=== PATIENT | male | born 1945 | race Caucasian/White ===

== ENCOUNTER 2022-05-29 06:22 | Day surgery (SDC) | payer MEDICARE, BC ==
[~2022-05-29] VITALS: Ht 177.8 cm; Wt 98.5 kg
[2022-05-29] MEDS ORDERED: PROTONIX 40MG T40 MG PO (06:54)
[2022-05-29] MEDS ORDERED: NORVASC 10MG10 MG PO (06:55)
[2022-05-29] MEDS ORDERED: ZESTORETIC 25 M1 TAB PO (06:56)
[2022-05-29] MEDS ORDERED: MEVACOR40 MG PO (06:57)
[2022-05-29] MEDS ORDERED: TENORMIN 5050 MG/TAB PO (06:57)
[2022-05-29 07:09] VITALS: BP 126/76; PULSE 68; TEMP 96.8
[2022-05-29 08:15] VITALS: BP 99/50; PULSE 77; TEMP 97.8
--- NOTE | 2022-05-29 08:15 | NUR ---
pt to [facility] via cart from endo room, walked to chair with standby assist. family in room. takes water and muffin, call light in reach,no c/o
[2022-05-29 08:30] VITALS: BP 76/62; PULSE 76
--- NOTE | 2022-05-29 08:30 | NUR ---
Dr Skinner into see pt and family
[2022-05-29 08:45] VITALS: BP 93/62; PULSE 77
--- NOTE | 2022-05-29 08:45 | NUR ---
iv dc'd intact, pt dressed, reviewed discharge inst. with pt and family. reviewed followup and moderate sedation precautions with verbal understanding.
[2022-05-29 09:00] VITALS: BP 102/60; PULSE 80
--- NOTE | 2022-05-29 09:05 | NUR ---
pt discharged via w/c with family
[2022-05-29 09:21] VITALS: BP 98/63; PULSE 73
== END 2022-05-29 09:05 | disposition home or self-care (01) ==
LOC: SDCO 06:22
DX: Z12.11 Encounter for screening for malignant neoplasm of colon (principal); K57.30 Diverticulosis of large intestine without perforation or abscess without bleeding; D12.0 Benign neoplasm of cecum; K31.7 Polyp of stomach and duodenum
CPT/HCPCS: J2704; J7030